=== PATIENT | female | born 1980 | race Caucasian/White ===

== ENCOUNTER 2016-12-16 22:28 | Emergency (ER) | payer BC ==
[~2016-12-16] VITALS: Ht 162.5 cm; Wt 74.8 kg
[~2016-12-16 22:28] MED LIST: ALBUTEROL0.09 MG/A2 IH; CYCLOBENZAPRINE5 M3 PO; HYDROCODONE BIT1 T11 PO; NORCO 10-325 T1 EACH PO; PERCOCET 325 MG1 TA7 PO; PHENERGAN25 MG RC; PREDNISONE10 MG PO; PREDNISONE50 MG PO; VENTOLIN0.09 MG/AC IH; VIBRAMYCIN100 MG PO; ZOFRAN ODT4 MG SL
[2016-12-16 23:00] VITALS: BP 176/134
[2016-12-17 00:11] LABS: BASO # 0.1 10*3/uL (0.0-0.1); BASO % 0.9 % (0.0-1.0); EOS % 0.2 % (1.0-4.0); HEMATOCRIT 43.1 % (37.0-47.0); HEMOGLOBIN 14.8 g/dl (12.0-16.0); LYMPH # 0.8 10*3/uL (1.3-4.4); LYMPH % 11.7 % (27.0-41.0); MEAN CELL VOLUME 87.8 fl (81.0-99.0); MEAN CORPUSCULAR HGB 30.1 pg (27.0-31.0); MEAN CORPUSCULAR HGB CONC 34.3 g/dl (33.0-37.0); MEAN PLATELET VOLUME 10.7 fl (9.6-12.3); MONO # 0.2 10*3/uL (0.1-1.0); MONO % 3.2 % (3.0-9.0); NEUT # 5.5 10*3/uL (2.3-7.9); NEUT % 83.7 % (47.0-73.0); PLATELET COUNT AUTOMATED 231 10*3/uL (130-400); RED BLOOD COUNT 4.91 10*6/uL (4.10-5.10); RED CELL DISTRI WIDTH 12.2 % (0-14.5); WHITE BLOOD COUNT 6.6 10*3/uL (4.8-10.8)
[2016-12-17 00:27] LABS: ALBUMIN 3.4 gm/dl (3.1-4.5); ALKALINE PHOSPHATASE 60 U/L (45-117); BILIRUBIN, TOTAL 0.6 mg/dl (0.2-1.0); BUN 15 mg/dl (7-24); CARBON DIOXIDE 27 mmol/L (21-32); CHLORIDE 105 mmol/L (98-107); EST GLOM FILT AFRICAN AMERICAN > 60 ml/min; GLUCOSE 109 mg/dL (65-99); POTASSIUM 3.8 mmol/L (3.5-5.1); SGOT/AST 16 IU/L (3-35); SGPT/ALT 20 U/L (12-78); SODIUM 138 mmol/L (136-145); TOTAL PROTEIN 6.7 gm/dL (6.4-8.2)
[2016-12-17] MEDS ORDERED: ZOFRAN ODT4 MG SL (00:59)
[2016-12-17 01:08] LABS: BILIRUBIN NEGATIVE (NEGATIVE); BLOOD 1+ (NEGATIVE); CLARITY SL CLOUDY (CLEAR); COLOR YELLOW (YELLOW); GLUCOSE NEGATIVE (NEGATIVE); KETONE 1+ (NEGATIVE); LEUKO ESTERASE NEGATIVE (NEGATIVE); NITRITE NEGATIVE (NEGATIVE); PH 6.5 (5.0-9.0); PROTEIN 3+ (NEGATIVE); SPECIFIC GRAVITY 1.025 (1.005-1.030); UROBILINOGEN 0.2 E.U./dl (0.2-1.0)
[2016-12-17 01:13] LABS: EPITHELIAL CELLS TNTC
[2016-12-17 01:14] LABS: URINE REFLEX COMMENT YES (NO)
[2016-12-17 01:15] LABS: BACTERIA TRACE
== END 2016-12-17 01:41 | disposition home or self-care (01) ==
LOC: ED 22:28
PROVIDERS: Nurse Practitioner Family
DX: K29.00 Acute gastritis without bleeding (principal); Z90.710 Acquired absence of both cervix and uterus; Z98.890 Other specified postprocedural states; Z88.2 Allergy status to sulfonamides; Z88.6 Allergy status to analgesic agent; Z88.5 Allergy status to narcotic agent

== ENCOUNTER 2017-03-14 15:55 | Inpatient (IN) | payer BC ==
[~2017-03-14] VITALS: Ht 162.6 cm; Wt 73.7 kg
--- NOTE | ~2017-03-14 | CON ---
[place], [place] REPORT OF CONSULTATION NAME: ROSE MARIE MCKAY [facility] #: [id number] UNIT #: [id number] ROOM: [facility] DOCTOR: SHAD MENDEZ DO BIRTHDATE: [birth year] DOS: 03/15/2017 REASON FOR CONSULTATION: Resistant new onset hypertension. HISTORY OF PRESENT ILLNESS: The patient is a 36-year-old female that presented to the Emergency Department with nausea that has been present off and on since November and headache that has been off and on for roughly a week. The patient states that she had been trying Excedrin for her headache, but it was not providing any relief. She states that she has had a history of migraines, but that she has not had 1 since 2009. She states that yesterday she was flying into [place] from [place] from [place] whereupon while on the plane, she started feeling like she was going to pass out. After the plane landed, she was escorted immediately to [facility] in [place] and was found out to have hypertensive emergency there, but after being in the ER, she convinced them that she wanted to be discharged to home and would follow up with her PCP. The next day, she went to her PCP, Dr. Ndiaye's office on 03/14/2017, and he recommended that she go to the ER for further evaluation and treatment. Currently, she is complaining of a headache and nausea and vomiting. She states that she does not have any photophobia or phonophobia with the headache. She describes it as a throbbing that is moderate to severe in intensity. She states that she does not take any medications for her blood pressure. PAST MEDICAL HISTORY: 1. H1N1 flu. 2. Acute respiratory distress syndrome. 3. Migraines. 4. Von Willebrand disease. PAST SURGICAL HISTORY: 1. Cleft palate and lip repair. 2. Hysterectomy. SOCIAL HISTORY: The patient admits to occasional alcohol use and denies any illicit drugs or tobacco. FAMILY HISTORY: The patient's father is alive at the age of 71 with a history of hypertension and diabetes and the patient's mother is alive and has a history of hypertension and is 60 years old. ALLERGIES: 1. SULFA, which causes GI upset. 2. ASPIRIN, states she is not supposed to take any blood thinners due to her von Willebrand disease. 3. PROCHLORPERAZINE, which causes the patient to become extremely agitated. REVIEW OF SYSTEMS: GENERAL: The patient denies any fevers or chills. Denies any recent weight loss or weight gain. HEENT: The patient denies any vision changes or hearing loss. Denies any nasal or ear drainage. [place], [place] REPORT OF CONSULTATION NAME: ROSE MARIE MCKAY UNIT #: [id number] ROOM: [facility] DOCTOR: SHAD MENDEZ DO BIRTHDATE: [birth year] CARDIOVASCULAR: The patient denies any chest pain, palpitations or lower extremity edema. RESPIRATORY: The patient denies any shortness of breath, cough, or wheezing. ABDOMEN: The patient does admit to nausea and vomiting, but denies any constipation or diarrhea. GENITOURINARY: The patient denies any dysuria, hematuria or increase in frequency. NEUROLOGIC: The patient does admit to a headache at this time. Denies any dizziness or confusion. PSYCHIATRIC: The patient denies any depression or anxiety. ENDOCRINE: The patient denies any polydipsia, heat intolerance, or cold intolerance. SKIN: The patient denies any new rashes, ulcerations or lesions. PHYSICAL EXAMINATION: VITAL SIGNS: Temperature 98.5, pulse 118, respiratory rate 16, blood pressure 187/126, pulse ox 97% on room air. GENERAL: The patient is awake, alert, responsive and cooperative, but does appear to be in moderate distress. HEENT: Head is normocephalic and atraumatic. Eyes: PERRL. SKIN: No lesions, ulcerations or injections are noted. ENT: No lesions, scars or masses are noted. Nares are patent. Oral mucosa is moist. Uvula is not deviated. No pharyngeal exudates or erythema are noted. NECK: Without any lesions, masses or ulcerations. Trachea midline. Thyroid is not enlarged. HEART: Rate is tachycardic. Rhythm is regular. No murmurs or gallops are noted. No edema is noted in the bilateral lower extremities. LUNGS: Clear to auscultation bilaterally. No wheezes, rhonchi or rales are appreciated. ABDOMEN: Soft, nontender, nondistended, positive bowel sounds are heard throughout. EXTREMITIES: There is no erythema, edema, cyanosis or clubbing appreciated. NEUROLOGIC: Cranial nerves 2-12 are grossly intact. Sensation is grossly intact. No photophobia or phonophobia is noted on examination. PSYCHOLOGICAL: The patient is a good historian with fair judgment and insight. The patient does appear to be anxious at this time. SKIN: Warm and dry with no rashes, ulcerations or lesions. No induration, nodules or tightening are noted. LABORATORY DATA: White blood cell count of 9.6, hemoglobin of 14.5, hematocrit of 41.3, platelet count of 227. Sodium of 141, potassium of 3.1, chloride of 104, carbon dioxide of 23, BUN of 17, creatinine of 0.92, glucose 124, calcium of 8.3. AST of 35, ALT of 66, albumin of 3.6. TSH of 1.27, free T4 of 1.39. A urinalysis was performed which showed 3+ protein in her urine as well as 3+ ketones. Trace blood is noted in the urine as well and as well as 1+ bilirubin. Urine glucose is negative. IMAGIN. A head CT was performed, which showed no acute intracranial abnormality. 2. Chest x-ray was performed, which showed low lung volumes with mild bibasilar subsegmental atelectasis. 3. Echocardiogram was performed which showed left ventricle with normal size, [place], [place] REPORT OF CONSULTATION NAME: ROSE MARIE MCKAY UNIT #: [id number] ROOM: [facility] DOCTOR: SHAD MENDEZ DO BIRTHDATE: [birth year] normal left ventricular wall thickness, normal left ventricular function with an EF of roughly 70%, stage 1 diastolic dysfunction. Interatrial septum is intact with no evidence for atrial septal defect. A trace mitral regurg, trace tricuspid regurg, no pericardial effusion and no intracardiac mass. ASSESSMENT AND PLAN: 1. Hypertensive emergency. The patient was recently started on hydrochlorothiazide as well as Norvasc. Since being admitted to the hospital, the patient does have hydralazine available q. 8 IV p.r.n. hypertension. This should be continued as needed. 2. Headache. 3. Nausea. 4. Tachycardia. 5. Von Willebrand disease. 6. As mentioned above, the patient should be continued on the IV hydralazine p.r.n. If needed, further medications could be added. The patient's headache should be treated via the primary service. At this time, we will try to lower her blood pressure over the next day or so and she will continue to be followed as an outpatient. SHAD MENDEZ DO YANETH WOODARD DO CM:CONSTR:REPORT OF CONSULTATION 1742 03/15/17 1916 interface
[~2017-03-14 15:55] MED LIST changes: -AMLODIPINE BESYL5 MG PO; -ATARAX,VISTARIL50 MG PO; -HYDR25T PO; -PHENERGAN25 M3 PO
[2017-03-14 16:17] VITALS: BP 202/130
[2017-03-14 16:45] VITALS: BP 195/138
[2017-03-14 16:59] LABS: BASO % 0.8 % (0.0-1.0); EOS % 0.6 % (1.0-4.0); HEMATOCRIT 42.7 % (37.0-47.0); LYMPH # 1.3 10*3/uL (1.3-4.4); LYMPH % 24.5 % (27.0-41.0); MEAN CELL VOLUME 85.1 fl (81.0-99.0); MEAN CORPUSCULAR HGB 29.9 pg (27.0-31.0); MEAN CORPUSCULAR HGB CONC 35.1 g/dl (33.0-37.0); MEAN PLATELET VOLUME 10.4 fl (9.6-12.3); MONO # 0.2 10*3/uL (0.1-1.0); MONO % 4.5 % (3.0-9.0); NEUT # 3.6 10*3/uL (2.3-7.9); NEUT % 69.4 % (47.0-73.0); PLATELET COUNT AUTOMATED 249 10*3/uL (130-400); RED BLOOD COUNT 5.02 10*6/uL (4.10-5.10); RED CELL DISTRI WIDTH 12.5 % (0-14.5); WHITE BLOOD COUNT 5.1 10*3/uL (4.8-10.8)
[2017-03-14 17:07] LABS: PROTHROMBIN TIME 10.8 SECONDS (9.0-12.4)
[2017-03-14 17:15] LABS: ALBUMIN 3.7 gm/dl (3.1-4.5); ALKALINE PHOSPHATASE 84 U/L (45-117); BILIRUBIN, TOTAL 0.5 mg/dl (0.2-1.0); BUN 14 mg/dl (7-24); CARBON DIOXIDE 25 mmol/L (21-32); CHLORIDE 106 mmol/L (98-107); CPK 49 U/L (26-192); EST GLOM FILT AFRICAN AMERICAN > 60 ml/min; GLUCOSE 84 mg/dL (65-99); LDH 181 U/L (84-246); MAGNESIUM 1.6 mg/dL (1.5-2.1); POTASSIUM 3.6 mmol/L (3.5-5.1); SGOT/AST 46 IU/L (3-35); SGPT/ALT 77 U/L (12-78); SODIUM 141 mmol/L (136-145); TOTAL PROTEIN 7.1 gm/dL (6.4-8.2)
[2017-03-14 17:18] LABS: CKMB < 0.5 ng/ml (0.5-3.6)
[2017-03-14 17:19] LABS: TROPONIN I < 0.015 ng/ml (<0.045)
[2017-03-14 18:45] VITALS: BP 173/115
[2017-03-14 19:38] VITALS: BP 169/117
[2017-03-14 20:00] VITALS: BP 169/117
[2017-03-14 22:39] VITALS: BP 136/95
[2017-03-15] VITALS (11 sets, daily range): BP systolic 117–187; BP diastolic 71–126
[2017-03-15 04:22] LABS: BASO % 0.4 % (0.0-1.0); EOS % 0.1 % (1.0-4.0); HEMATOCRIT 41.3 % (37.0-47.0); HEMOGLOBIN 14.5 g/dl (12.0-16.0); LYMPH # 0.9 10*3/uL (1.3-4.4); LYMPH % 8.8 % (27.0-41.0); MEAN CELL VOLUME 85.2 fl (81.0-99.0); MEAN CORPUSCULAR HGB 29.9 pg (27.0-31.0); MEAN CORPUSCULAR HGB CONC 35.1 g/dl (33.0-37.0); MEAN PLATELET VOLUME 10.3 fl (9.6-12.3); MONO # 0.2 10*3/uL (0.1-1.0); MONO % 2.5 % (3.0-9.0); NEUT # 8.4 10*3/uL (2.3-7.9); NEUT % 87.8 % (47.0-73.0); PLATELET COUNT AUTOMATED 227 10*3/uL (130-400); RED BLOOD COUNT 4.85 10*6/uL (4.10-5.10); RED CELL DISTRI WIDTH 12.4 % (0-14.5); WHITE BLOOD COUNT 9.6 10*3/uL (4.8-10.8)
[2017-03-15 04:38] LABS: ALBUMIN 3.6 gm/dl (3.1-4.5); ALKALINE PHOSPHATASE 77 U/L (45-117); BILIRUBIN, TOTAL 0.5 mg/dl (0.2-1.0); BUN 17 mg/dl (7-24); CARBON DIOXIDE 23 mmol/L (21-32); CHLORIDE 104 mmol/L (98-107); EST GLOM FILT AFRICAN AMERICAN > 60 ml/min; GLUCOSE 124 mg/dL (65-99); POTASSIUM 3.1 mmol/L (3.5-5.1); SGOT/AST 35 IU/L (3-35); SGPT/ALT 66 U/L (12-78); SODIUM 141 mmol/L (136-145)
[2017-03-15 04:40] LABS: FREE T4 1.39 ng/dl (0.76-1.46)
[2017-03-15 07:08] LABS: FOLIC ACID 15.23 ng/mL (>5.38)
[2017-03-15 12:03] LABS: BILIRUBIN 1+ (NEGATIVE); BLOOD TRACE-INTACT (NEGATIVE); CLARITY CLEAR (CLEAR); COLOR YELLOW (YELLOW); GLUCOSE NEGATIVE (NEGATIVE); KETONE 3+ (NEGATIVE); LEUKO ESTERASE NEGATIVE (NEGATIVE); NITRITE NEGATIVE (NEGATIVE); PROTEIN 3+ (NEGATIVE); SPECIFIC GRAVITY >= 1.030 (1.005-1.030); UROBILINOGEN 0.2 E.U./dl (0.2-1.0)
[2017-03-15 12:15] LABS: BACTERIA TRACE
[2017-03-15 12:17] LABS: URINE REFLEX COMMENT YES (NO)
[2017-03-16 04:00] VITALS: BP 152/107
[2017-03-16 06:20] VITALS: BP 144/94
[2017-03-16 07:28] LABS: CHLORIDE 99 mmol/L (98-107); POTASSIUM 3.2 mmol/L (3.5-5.1); SODIUM 136 mmol/L (136-145)
[2017-03-16 07:34] LABS: BUN 16 mg/dl (7-24); CARBON DIOXIDE 23 mmol/L (21-32); EST GLOM FILT AFRICAN AMERICAN > 60 ml/min; GLUCOSE 99 mg/dL (65-99); PHOSPHOROUS 3.4 mg/dL (2.5-4.9)
[2017-03-16 08:00] VITALS: BP 140/98
[2017-03-16] MEDS ORDERED: AMLODIPINE BESYL5 MG PO (11:05)
[2017-03-16] MEDS ORDERED: HYDR25T PO (11:05)
[2017-03-16] MEDS ORDERED: PHENERGAN25 M3 PO (11:24)
[2017-03-16] MEDS ORDERED: ATARAX,VISTARIL50 MG PO (11:31)
[2017-03-16 17:07] LABS: CREATININE, RANDOM URINE 130.8 mg/dL (Not Estab.)
[2017-03-17 19:06] LABS: METANEPH-CREAT RATIO 0.5 (0.0-1.0)
== END 2017-03-16 12:00 | disposition home or self-care (01) | DRG 304 ==
LOC: ED 15:55 → EDHOLD 17:40 → ICCU 17:49 → 5E 03-16 05:52
PROVIDERS: Hospitalist; Internal Medicine Hospice and Palliative Medicine; Physician Assistant
DX: I16.1 Hypertensive emergency (principal); I50.31 Acute diastolic (congestive) heart failure; I11.0 Hypertensive heart disease with heart failure; R00.0 Tachycardia, unspecified; G43.909 Migraine, unspecified, not intractable, without status migrainosus; I08.1 Rheumatic disorders of both mitral and tricuspid valves; Z83.3 Family history of diabetes mellitus; Z88.2 Allergy status to sulfonamides; Z88.6 Allergy status to analgesic agent; Z90.710 Acquired absence of both cervix and uterus; Z88.8 Allergy status to other drugs, medicaments and biological substances; Z82.49 Family history of ischemic heart disease and other diseases of the circulatory system

== ENCOUNTER → 2017-03-14 | Outpatient (CLI) | payer BC ==
[~2017-03-14] MED LIST changes: +AMLODIPINE BESYL5 MG PO; +ATARAX,VISTARIL50 MG PO; +HYDR25T PO; +PHENERGAN25 M3 PO
[2017-03-14 10:06] LABS: HEMATOCRIT 44.3 % (37.0-47.0); HEMOGLOBIN 15.5 g/dl (12.0-16.0); MEAN CORPUSCULAR HGB 30.1 pg (27.0-31.0); MEAN PLATELET VOLUME 10.9 fl (9.6-12.3); RED BLOOD COUNT 5.15 10*6/uL (4.10-5.10); RED CELL DISTRI WIDTH 12.3 % (0-14.5); WHITE BLOOD COUNT 4.4 10*3/uL (4.8-10.8)
[2017-03-14 10:42] LABS: ALBUMIN 3.9 gm/dl (3.1-4.5); CHLORIDE 103 mmol/L (98-107); EST GLOM FILT AFRICAN AMERICAN > 60 ml/min; HDL CHOLESTEROL 73 mg/dl (40-60); POTASSIUM 3.2 mmol/L (3.5-5.1); SGOT/AST 45 IU/L (3-35); SGPT/ALT 81 U/L (12-78); SODIUM 140 mmol/L (136-145)
[2017-03-14 10:51] LABS: ALKALINE PHOSPHATASE 90 U/L (45-117); BILIRUBIN, TOTAL 0.5 mg/dl (0.2-1.0); BUN 13 mg/dl (7-24); CARBON DIOXIDE 25 mmol/L (21-32); CHOLESTEROL 193 mg/dL (<200); GLUCOSE 86 mg/dL (65-99); IRON 83 ug/dL (50-170); IRON SATURATION 26 %; LDL CHOLESTEROL 100 mg/dL (9-159); TOTAL PROTEIN 7.4 gm/dL (6.4-8.2); TRIGLYCERIDES 101 mg/dl (<150); UIBC 229 ug/dL (110-365); VLDL CHOLESTEROL 20 mg/dL (6-40)
== END | disposition home or self-care (01) ==
LOC: LAB 09:22
PROVIDERS: Family Medicine
DX: Z13.220 Encounter for screening for lipoid disorders (principal); D64.9 Anemia, unspecified; E74.00 Glycogen storage disease, unspecified; F41.1 Generalized anxiety disorder; R53.83 Other fatigue

== ENCOUNTER → 2018-09-01 | Outpatient (CLI) | payer BC ==
[~2018-09-01] MED LIST changes: +AMLODIPINE BESYL5 MG PO; +ATARAX,VISTARIL50 MG PO; +HYDR25T PO; +PHENERGAN25 M3 PO
== END ==
LOC: MAMMO 08:31
DX: Z12.31 Encounter for screening mammogram for malignant neoplasm of breast (principal)

== ENCOUNTER → 2019-02-05 | Outpatient (CLI) | payer BC ==
[~2019-02-05] MED LIST changes: +DELTASONE20 M1 PO; +METOPROLOL SUCC50 M1 PO; +NEBULIZER; +VENTOLIN 02.5 MG/3 M INH
--- NOTE | ~2019-02-05 | EKG ---
[place], [place] ELECTROCARDIOGRAM REPORT NAME: ROSE MARIE MCKAY UNIT #: [id number] ROOM: DOCTOR: EPIPHANY DRAFT REPORT BIRTHDATE: [birth year] [facility] Test Date: 2019-02-05 Test Time: 16:16:42 Pat Name: ROSE MARIE MCKAY Department: Room: Gender: F Director Marketing: Mariella Gonzalez : 1980 Requested By: RONALDO ACEVES Order Number: [id number] Reading MD: Miky Schafer MD Measurements Intervals Zahl Rate: 79 P: 70 AL: 155 QRS: 72 QRSD: 82 T: 17 QT: 357 QTc: 410 Interpretive Statements Sinus rhythm No previous ECG available for comparison Electronically Signed On 02-06-2019 4:09:46 PDT by Miky Schafer MD CM:EKGRPT:ELECTROCARDIOGRAM REPORT [id number] RONALDO ACEVES EPIPHANY DRAFT REPORT RONALDO ACEVES
== END | disposition home or self-care (01) ==
LOC: RAD 15:46
DX: I11.0 Hypertensive heart disease with heart failure (principal); I50.32 Chronic diastolic (congestive) heart failure; E55.9 Vitamin D deficiency, unspecified; F41.1 Generalized anxiety disorder; J18.1 Lobar pneumonia, unspecified organism; R05 Cough

== ENCOUNTER → 2019-12-24 | Outpatient (CLI) | payer BC | END | disposition home or self-care (01) | LOC: MAMMO 13:00 | DX: Z12.31 Encounter for screening mammogram for malignant neoplasm of breast (principal) ==

== ENCOUNTER 2020-12-24 17:11 | Emergency (ER) | payer BC ==
[~2020-12-24] VITALS: Ht 162.5 cm; Wt 79.4 kg
[2020-12-24 17:17] VITALS: BP 126/99
[2020-12-24] MEDS ORDERED: ANTIBIOTIC28.4 GM T (17:40)
[2020-12-24] MEDS ORDERED: HYDROCODONE-AC1 EAC1 PO (17:40)
[2021-01-19] MEDS ORDERED: PROAIR HFA8.5 GM INH (09:18)
[2021-01-22] MEDS ORDERED: PERCOCET 5-3251 EACH PO (07:56)
== END 2020-12-24 21:30 | disposition home or self-care (01) ==
LOC: ED 17:11
DX: T23.231A Burn of second degree of multiple right fingers (nail), not including thumb, initial encounter (principal); T23.232A Burn of second degree of multiple left fingers (nail), not including thumb, initial encounter; Z98.890 Other specified postprocedural states; Z79.899 Other long term (current) drug therapy; Z88.2 Allergy status to sulfonamides; Z88.6 Allergy status to analgesic agent; Z88.8 Allergy status to other drugs, medicaments and biological substances; X16.XXXA Contact with hot heating appliances, radiators and pipes, initial encounter; Y93.89 Activity, other specified; Y92.89 Other specified places as the place of occurrence of the external cause; Y99.9 Unspecified external cause status

== ENCOUNTER → 2020-12-30 | Outpatient (CLI) | payer BC ==
[~2020-12-30] MED LIST changes: +ANTIBIOTIC28.4 GM T; +HYDROCODONE-AC1 EAC1 PO; +PERCOCET 5-3251 EACH PO; +PROAIR HFA8.5 GM INH
== END ==
LOC: WOUNDCARE 01:30
PROVIDERS: ATTEND Surgery
DX: T23.351A Burn of third degree of right palm, initial encounter (principal); T31.0 Burns involving less than 10% of body surface; T23.202A Burn of second degree of left hand, unspecified site, initial encounter; T23.232A Burn of second degree of multiple left fingers (nail), not including thumb, initial encounter; I12.9 Hypertensive chronic kidney disease with stage 1 through stage 4 chronic kidney disease, or unspecified chronic kidney disease; N18.9 Chronic kidney disease, unspecified; D68.0 Von Willebrand disease; J98.4 Other disorders of lung; Z90.710 Acquired absence of both cervix and uterus; Z79.899 Other long term (current) drug therapy; X08.8XXA Exposure to other specified smoke, fire and flames, initial encounter; Y93.89 Activity, other specified; Y92.89 Other specified places as the place of occurrence of the external cause; Y99.8 Other external cause status

== ENCOUNTER → 2021-01-06 | Outpatient (CLI) | payer BC | LOC: WOUNDCARE 02:06 | PROVIDERS: ATTEND Nurse Practitioner | DX: T23.232D Burn of second degree of multiple left fingers (nail), not including thumb, subsequent encounter (principal); T23.202D Burn of second degree of left hand, unspecified site, subsequent encounter; T31.0 Burns involving less than 10% of body surface; I12.9 Hypertensive chronic kidney disease with stage 1 through stage 4 chronic kidney disease, or unspecified chronic kidney disease; N18.9 Chronic kidney disease, unspecified; D68.0 Von Willebrand disease; J98.4 Other disorders of lung; Z90.710 Acquired absence of both cervix and uterus; Z79.899 Other long term (current) drug therapy; X08.8XXD Exposure to other specified smoke, fire and flames, subsequent encounter ==

== ENCOUNTER → 2021-01-19 | Outpatient (CLI) | payer BC | END | disposition home or self-care (01) | LOC: COVID19 11:33 | PROVIDERS: ATTEND Surgery | DX: Z01.812 Encounter for preprocedural laboratory examination (principal); Z20.822 Contact with and (suspected) exposure to COVID-19 ==

== ENCOUNTER → 2021-01-22 | Day surgery (SDC) | payer BC ==
[~2021-01-22] VITALS: Ht 162.5 cm; Wt 80.7 kg
[2021-01-22 07:02] VITALS: BP 108/72
[2021-01-22 07:59] VITALS: BP 113/52
[2021-01-22 08:15] VITALS: BP 103/75
[2021-01-22 08:30] VITALS: BP 99/54
[2021-01-22 09:55] VITALS: BP 113/62
== END ==
LOC: SDC 10-30 08:00
PROVIDERS: ATTEND Surgery
DX: L72.11 Pilar cyst (principal); D23.4 Other benign neoplasm of skin of scalp and neck; I13.0 Hypertensive heart and chronic kidney disease with heart failure and stage 1 through stage 4 chronic kidney disease, or unspecified chronic kidney disease; N18.30 Chronic kidney disease, stage 3 unspecified; I50.9 Heart failure, unspecified; G43.909 Migraine, unspecified, not intractable, without status migrainosus; Z88.2 Allergy status to sulfonamides; Z88.6 Allergy status to analgesic agent; Z88.8 Allergy status to other drugs, medicaments and biological substances; Z90.710 Acquired absence of both cervix and uterus; Z79.899 Other long term (current) drug therapy

== ENCOUNTER → 2021-10-15 | Outpatient (CLI) | payer BC ==
[2021-10-15 08:41] LABS: BASO # 0.1 10*3/uL (0.0-0.1); BASO % 1.3 % (0.0-1.0); EOS # 0.2 10*3/uL (0.0-0.4); EOS % 2.8 % (1.0-4.0); HEMATOCRIT 41.9 % (37.0-47.0); LYMPH # 1.2 10*3/uL (1.3-4.4); MEAN CELL VOLUME 89.9 fl (81.0-99.0); MEAN CORPUSCULAR HGB 29.8 pg (27.0-31.0); MEAN CORPUSCULAR HGB CONC 33.2 g/dl (33.0-37.0); MEAN PLATELET VOLUME 10.3 fl (9.6-12.3); MONO # 0.4 10*3/uL (0.1-1.0); MONO % 6.5 % (3.0-9.0); NEUT # 4.1 10*3/uL (2.3-7.9); NEUT % 69.1 % (47.0-73.0); PLATELET COUNT AUTOMATED 241 10*3/uL (130-400); RED BLOOD COUNT 4.66 10*6/uL (4.10-5.10); RED CELL DISTRI WIDTH 12.6 % (0-14.5)
[2021-10-15 08:55] LABS: ALBUMIN 3.5 gm/dl (3.1-4.5); ALKALINE PHOSPHATASE 60 U/L (45-117); BUN 14 mg/dl (7-24); CHLORIDE 106 mmol/L (98-107); CHOLESTEROL 180 mg/dL (<200); LDL CHOLESTEROL 90 mg/dL (9-159); SGOT/AST 20 IU/L (3-35); SGPT/ALT 33 U/L (12-78); SODIUM 138 mmol/L (136-145); TRIGLYCERIDES 86 mg/dl (<150)
== END | disposition home or self-care (01) ==
LOC: LAB 07:23 → MAMMO 07:30
PROVIDERS: ATTEND Nurse Practitioner Family
DX: Z12.31 Encounter for screening mammogram for malignant neoplasm of breast (principal); I10 Essential (primary) hypertension; F41.1 Generalized anxiety disorder

== ENCOUNTER → 2022-03-02 | Outpatient (CLI) | payer BC ==
[2022-03-02 08:48] LABS: BASO # 0.1 10*3/uL (0.0-0.1); BASO % 1.4 % (0.0-1.0); EOS # 0.1 10*3/uL (0.0-0.4); EOS % 2.6 % (1.0-4.0); HEMATOCRIT 44.3 % (37.0-47.0); LYMPH # 1.8 10*3/uL (1.3-4.4); LYMPH % 35.4 % (27.0-41.0); MEAN CELL VOLUME 88.1 fl (81.0-99.0); MEAN CORPUSCULAR HGB CONC 34.1 g/dl (33.0-37.0); MEAN PLATELET VOLUME 9.9 fl (9.6-12.3); MONO # 0.4 10*3/uL (0.1-1.0); MONO % 7.2 % (3.0-9.0); NEUT # 2.6 10*3/uL (2.3-7.9); NEUT % 53.2 % (47.0-73.0); PLATELET COUNT AUTOMATED 251 10*3/uL (130-400); RED BLOOD COUNT 5.03 10*6/uL (4.10-5.10); RED CELL DISTRI WIDTH 12.8 % (0-14.5)
[2022-03-02 09:06] LABS: CREATININE 1.2 mg/dL (0.55-1.02); POTASSIUM 4.2 mmol/L (3.5-5.1); TOTAL PROTEIN 7.4 gm/dL (6.4-8.2)
[2022-03-02 09:13] LABS: THYROID STIM HORMONE (HS) 2.27 uIU/ml (0.358-4.75)
== END | disposition home or self-care (01) ==
LOC: LAB 08:26
PROVIDERS: ATTEND Nurse Practitioner Family
DX: I10 Essential (primary) hypertension (principal); E55.9 Vitamin D deficiency, unspecified

== ENCOUNTER → 2022-03-25 | Outpatient (CLI) | payer BC | END | disposition home or self-care (01) | LOC: US 08:30 | PROVIDERS: ATTEND Nurse Practitioner Family | DX: R79.89 Other specified abnormal findings of blood chemistry (principal) ==

== ENCOUNTER → 2022-09-01 | Outpatient (CLI) | payer BC ==
[2022-09-01 07:46] LABS: BASO # 0.1 10*3/uL (0.0-0.1); BASO % 1.4 % (0.0-1.0); EOS # 0.2 10*3/uL (0.0-0.4); EOS % 3.9 % (1.0-4.0); HEMATOCRIT 43.6 % (37.0-47.0); LYMPH # 1.9 10*3/uL (1.3-4.4); LYMPH % 32.9 % (27.0-41.0); MEAN CELL VOLUME 87.9 fl (81.0-99.0); MEAN CORPUSCULAR HGB 29.6 pg (27.0-31.0); MEAN CORPUSCULAR HGB CONC 33.7 g/dl (33.0-37.0); MEAN PLATELET VOLUME 9.8 fl (9.6-12.3); MONO # 0.4 10*3/uL (0.1-1.0); MONO % 6.7 % (3.0-9.0); NEUT # 3.2 10*3/uL (2.3-7.9); NEUT % 54.9 % (47.0-73.0); PLATELET COUNT AUTOMATED 242 10*3/uL (130-400); RED BLOOD COUNT 4.96 10*6/uL (4.10-5.10); RED CELL DISTRI WIDTH 12.4 % (0-14.5); WHITE BLOOD COUNT 5.9 10*3/uL (4.8-10.8)
[2022-09-01 08:01] LABS: CREATININE 1.24 mg/dL (0.55-1.02); POTASSIUM 4.4 mmol/L (3.5-5.1); TOTAL PROTEIN 7.2 gm/dL (6.4-8.2)
== END ==
LOC: LAB 07:32
PROVIDERS: ATTEND Nurse Practitioner Family
DX: Z12.31 Encounter for screening mammogram for malignant neoplasm of breast (principal); F41.1 Generalized anxiety disorder

== ENCOUNTER → 2022-09-27 | Outpatient (CLI) | payer BC ==
[2022-09-27 09:02] LABS: BASO # 0.1 10*3/uL (0.0-0.1); BASO % 1.4 % (0.0-1.0); EOS # 0.2 10*3/uL (0.0-0.4); EOS % 3.6 % (1.0-4.0); HEMATOCRIT 43.6 % (37.0-47.0); LYMPH # 1.8 10*3/uL (1.3-4.4); LYMPH % 32.4 % (27.0-41.0); MEAN CELL VOLUME 88.1 fl (81.0-99.0); MEAN CORPUSCULAR HGB 29.7 pg (27.0-31.0); MEAN CORPUSCULAR HGB CONC 33.7 g/dl (33.0-37.0); MEAN PLATELET VOLUME 9.7 fl (9.6-12.3); MONO # 0.4 10*3/uL (0.1-1.0); MONO % 6.7 % (3.0-9.0); NEUT # 3.1 10*3/uL (2.3-7.9); NEUT % 55.7 % (47.0-73.0); PLATELET COUNT AUTOMATED 271 10*3/uL (130-400); RED BLOOD COUNT 4.95 10*6/uL (4.10-5.10); RED CELL DISTRI WIDTH 12.3 % (0-14.5); WHITE BLOOD COUNT 5.6 10*3/uL (4.8-10.8)
[2022-09-27 09:15] LABS: URINE CREATININE RANDOM 45.6 mg/dL
[2022-09-27 09:17] LABS: CREATININE 1.26 mg/dL (0.55-1.02); POTASSIUM 4.3 mmol/L (3.5-5.1); TOTAL PROTEIN 7.4 gm/dL (6.4-8.2); URIC ACID 4.6 mg/dL (2.6-6.0)
== END | disposition home or self-care (01) ==
LOC: LAB 08:34
PROVIDERS: ATTEND Nurse Practitioner Adult Health
DX: I12.9 Hypertensive chronic kidney disease with stage 1 through stage 4 chronic kidney disease, or unspecified chronic kidney disease (principal); N18.31 Chronic kidney disease, stage 3a; E55.9 Vitamin D deficiency, unspecified

== ENCOUNTER → 2023-09-28 | Outpatient (CLI) | payer BC | END | disposition home or self-care (01) | LOC: MAMMO 14:00 | PROVIDERS: ATTEND Nurse Practitioner Family | DX: Z12.31 Encounter for screening mammogram for malignant neoplasm of breast (principal) ==

== ENCOUNTER → 2024-03-26 | Outpatient (CLI) | payer BC | END | disposition home or self-care (01) | LOC: RAD 14:44 | PROVIDERS: ATTEND Nurse Practitioner Family | DX: J20.9 Acute bronchitis, unspecified (principal); R06.02 Shortness of breath; R05.9 Cough, unspecified; J45.909 Unspecified asthma, uncomplicated; J44.9 Chronic obstructive pulmonary disease, unspecified ==

== ENCOUNTER → 2024-03-26 | Outpatient (CLI) | payer BC | LOC: LAB 15:59 | PROVIDERS: ATTEND Nurse Practitioner Family | DX: Z20.822 Contact with and (suspected) exposure to COVID-19 (principal) ==

== ENCOUNTER → 2024-12-24 | Outpatient (CLI) | payer BC | END | disposition home or self-care (01) | LOC: MAMMO 11-12 08:00 | PROVIDERS: ATTEND Nurse Practitioner Primary Care | DX: Z12.31 Encounter for screening mammogram for malignant neoplasm of breast (principal); R92.323 Mammographic fibroglandular density, bilateral breasts ==

== ENCOUNTER 2025-01-07 11:07 | Emergency (ER) | payer BC ==
[~2025-01-07] VITALS: Ht 162.5 cm; Wt 82.6 kg
[2025-01-07 11:31] VITALS: BP 151/97
[2025-01-07] MEDS ORDERED: Albuterol Sulf/Ipratropium 3 ML VIAL NEB ONE (11:35)
[2025-01-07] MEDS ORDERED: methylPREDNISolone sod succ 125 MG VIAL IV ONE (11:35)
[2025-01-07] MEDS ORDERED: ATARAX,VISTARIL50 MG PO (11:47)
[2025-01-07] MEDS ORDERED: BREO ELLIPTA 11 EACH INH (11:48)
[2025-01-07 11:53] LABS: BASO % 0.5 % (0.0-1.0); EOS % 0.3 % (1.0-4.0); HEMATOCRIT 41.6 % (37.0-47.0); MEAN CELL VOLUME 88.3 fl (81.0-99.0); MEAN CORPUSCULAR HGB 29.5 pg (27.0-31.0); MEAN CORPUSCULAR HGB CONC 33.4 g/dl (33.0-37.0); MONO # 0.4 10*3/uL (0.1-1.0); MONO % 5.3 % (3.0-9.0); NEUT # 4.8 10*3/uL (2.3-7.9); NEUT % 72.5 % (47.0-73.0); PLATELET COUNT AUTOMATED 226 10*3/uL (130-400); RED BLOOD COUNT 4.71 10*6/uL (4.10-5.10); RED CELL DISTRI WIDTH 12.2 % (0-14.5); WHITE BLOOD COUNT 6.7 10*3/uL (4.8-10.8)
[2025-01-07 12:16] LABS: ALKALINE PHOSPHATASE 112 U/L (46-116); BUN 12 mg/dl (9-23); CHLORIDE 105 mmol/L (98-107); SGPT/ALT 65 U/L (5-49); TOTAL PROTEIN 7.3 gm/dL (6.0-8.0)
[2025-01-07] MEDS ORDERED: AVPAK AZITHROM250 M1 PO (13:01)
[2025-01-07] MEDS ORDERED: PREDNISONE20 M1 PO (13:01)
[2025-01-07] MEDS ORDERED: ALBUTEROL2.5 MG/0.5 INH (13:05)
[2025-01-07] MEDS ORDERED: AZITHROMYCIN 250 MG TAB PO ONE (13:05)
== END 2025-01-07 13:14 | disposition home or self-care (01) ==
LOC: ED 11:07
PROVIDERS: Nurse Practitioner Family
DX: J40 Bronchitis, not specified as acute or chronic (principal); R11.0 Nausea; Z20.822 Contact with and (suspected) exposure to COVID-19; D64.9 Anemia, unspecified; G43.909 Migraine, unspecified, not intractable, without status migrainosus; E87.6 Hypokalemia; I11.0 Hypertensive heart disease with heart failure; I50.9 Heart failure, unspecified; F41.9 Anxiety disorder, unspecified; Z88.6 Allergy status to analgesic agent; Z88.2 Allergy status to sulfonamides; Z88.8 Allergy status to other drugs, medicaments and biological substances; Z90.711 Acquired absence of uterus with remaining cervical stump; Z98.890 Other specified postprocedural states

== ENCOUNTER 2025-01-31 06:53 | Emergency (ER) | payer BC ==
[~2025-01-31] VITALS: Ht 170.1 cm; Wt 82.6 kg
[~2025-01-31 06:53] MED LIST changes: +ALBUTEROL2.5 MG/0.5 INH; +AVPAK AZITHROM250 M1 PO; +BREO ELLIPTA 11 EACH INH; +PREDNISONE20 M1 PO
[2025-01-31 07:30] VITALS: BP 132/94
[2025-01-31] MEDS ORDERED: Ondansetron Hydrochloride 4 MG TAB SL ONE (07:30)
[2025-01-31 07:55] LABS: BASO % 0.3 % (0.0-1.0); EOS # 0.1 10*3/uL (0.0-0.4); EOS % 2.2 % (1.0-4.0); HEMATOCRIT 42.6 % (37.0-47.0); MEAN CELL VOLUME 91.2 fl (81.0-99.0); MEAN CORPUSCULAR HGB 29.6 pg (27.0-31.0); MEAN CORPUSCULAR HGB CONC 32.4 g/dl (33.0-37.0); MEAN PLATELET VOLUME 8.9 fl (9.6-12.3); MONO # 0.5 10*3/uL (0.1-1.0); MONO % 7.9 % (3.0-9.0); NEUT % 61.9 % (47.0-73.0); PLATELET COUNT AUTOMATED 235 10*3/uL (130-400); RED BLOOD COUNT 4.67 10*6/uL (4.10-5.10); RED CELL DISTRI WIDTH 13.2 % (0-14.5); WHITE BLOOD COUNT 6.5 10*3/uL (4.8-10.8)
[2025-01-31 08:15] LABS: POTASSIUM 4.3 mmol/L (3.4-5.1)
[2025-01-31] MEDS ORDERED: Ondansetron4 MG PO (08:55)
== END 2025-01-31 09:01 | disposition home or self-care (01) ==
LOC: ED 06:53
PROVIDERS: Internal Medicine
DX: K52.9 Noninfective gastroenteritis and colitis, unspecified (principal); F17.200 Nicotine dependence, unspecified, uncomplicated; R11.2 Nausea with vomiting, unspecified; Z88.2 Allergy status to sulfonamides; Z88.6 Allergy status to analgesic agent; Z88.8 Allergy status to other drugs, medicaments and biological substances; Z79.899 Other long term (current) drug therapy; Z98.890 Other specified postprocedural states; Z90.710 Acquired absence of both cervix and uterus

== ENCOUNTER 2025-02-01 11:50 | Emergency (ER) | payer BC ==
[~2025-02-01] VITALS: Ht 162.5 cm; Wt 81.6 kg
[~2025-02-01 11:50] MED LIST changes: +Ondansetron4 MG PO
[2025-02-01 12:08] VITALS: BP 103/60
[2025-02-01] MEDS ORDERED: Ketorolac Tromethamine 15 MG/ML VIAL IV ONE (12:15)
[2025-02-01] MEDS ORDERED: diphenhydrAMINE hydrochloride 50 MG/ML VIAL IV ONE (12:15)
[2025-02-01] MEDS ORDERED: Metoclopramide Hydrochloride 10 MG/2 ML VIAL IV ONE (12:15)
[2025-02-01] MEDS ORDERED: SODIUM CHLORIDE 0.9% 1,000 ML IV ONE (12:15)
[2025-02-01] MEDS ORDERED: methylPREDNISolone sod succ 125 MG VIAL IV ONE (12:20)
[2025-02-01] MEDS ORDERED: MAGNESIUM SULFATE 50 ML IV ONE (12:20)
[2025-02-01 12:41] LABS: BASO % 0.3 % (0.0-1.0); EOS # 0.1 10*3/uL (0.0-0.4); EOS % 0.9 % (1.0-4.0); HEMATOCRIT 45.7 % (37.0-47.0); MEAN CORPUSCULAR HGB 29.5 pg (27.0-31.0); MEAN CORPUSCULAR HGB CONC 32.4 g/dl (33.0-37.0); MEAN PLATELET VOLUME 8.9 fl (9.6-12.3); MONO # 0.4 10*3/uL (0.1-1.0); MONO % 6.5 % (3.0-9.0); NEUT # 4.9 10*3/uL (2.3-7.9); NEUT % 72.9 % (47.0-73.0); PLATELET COUNT AUTOMATED 243 10*3/uL (130-400); RED BLOOD COUNT 5.02 10*6/uL (4.10-5.10); WHITE BLOOD COUNT 6.8 10*3/uL (4.8-10.8)
[2025-02-01 13:00] LABS: POTASSIUM 4.3 mmol/L (3.4-5.1)
[2025-02-01] MEDS ORDERED: HYDROmorphone Hydrochloride 1 MG/ML SYR IV ONE (13:00)
== END 2025-02-01 13:41 | disposition home or self-care (01) ==
LOC: ED 11:50
PROVIDERS: Emergency Medicine
DX: J44.1 Chronic obstructive pulmonary disease with (acute) exacerbation (principal); R51.9 Headache, unspecified; R11.2 Nausea with vomiting, unspecified; I10 Essential (primary) hypertension; E78.5 Hyperlipidemia, unspecified; Z88.2 Allergy status to sulfonamides; Z88.6 Allergy status to analgesic agent; Z88.8 Allergy status to other drugs, medicaments and biological substances; Z79.899 Other long term (current) drug therapy; Z98.890 Other specified postprocedural states; Z90.711 Acquired absence of uterus with remaining cervical stump

== ENCOUNTER → 2025-04-03 | Outpatient (CLI) | payer BC | END | disposition home or self-care (01) | LOC: CT 12:58 | PROVIDERS: ATTEND Nurse Practitioner Primary Care | DX: N60.01 Solitary cyst of right breast (principal); R92.8 Other abnormal and inconclusive findings on diagnostic imaging of breast ==

== ENCOUNTER 2025-07-10 01:54 | Emergency (ER) | payer BC ==
[2025-07-10] MEDS ORDERED: Ondansetron Hydrochloride 4 MG/2 ML VIAL IV ONE (02:15)
[2025-07-10] MEDS ORDERED: diazePAM 10 MG/2 ML SYR IV ONE (02:15)
[2025-07-10 02:48] LABS: BASO # 0.0 10*3/uL (0.0-0.1); BASO % 0.1 % (0.0-1.0); EOS # 0.0 10*3/uL (0.0-0.4); EOS % 0.0 % (1.0-4.0); MEAN CELL VOLUME 87.5 fl (81.0-99.0); MEAN CORPUSCULAR HGB 29.5 pg (27.0-31.0); MEAN PLATELET VOLUME 10.1 fl (9.6-12.3); MONO # 0.3 10*3/uL (0.1-1.0); MONO % 3.9 % (3.0-9.0); NEUT # 6.8 10*3/uL (2.3-7.9); NEUT % 84.7 % (47.0-73.0); NUCLEATED RED BLOOD CELL 0.0 % (0.0-0.0); NUCLEATED RED BLOOD CELL 0.0 10*3/uL (0.0-0.0); PLATELET COUNT AUTOMATED 205 10*3/uL (130-400); RED CELL DISTRI WIDTH 12.6 % (0-14.5)
[2025-07-10 03:11] VITALS: BP 128/77
[2025-07-10] MEDS ORDERED: Metoclopramide Hydrochloride 10 MG/2 ML VIAL IV ONE (03:15)
[2025-07-10 03:38] LABS: BUN 16 mg/dl (9-23)
== END 2025-07-10 05:00 | disposition home or self-care (01) ==
LOC: ED 01:54
PROVIDERS: Emergency Medicine
DX: G89.18 Other acute postprocedural pain (principal); F41.9 Anxiety disorder, unspecified; Z53.29 Procedure and treatment not carried out because of patient's decision for other reasons; J44.9 Chronic obstructive pulmonary disease, unspecified; I11.0 Hypertensive heart disease with heart failure; I50.9 Heart failure, unspecified; G43.909 Migraine, unspecified, not intractable, without status migrainosus; Z88.2 Allergy status to sulfonamides; Z88.6 Allergy status to analgesic agent; Z88.8 Allergy status to other drugs, medicaments and biological substances; Z79.899 Other long term (current) drug therapy; Z90.711 Acquired absence of uterus with remaining cervical stump; Z98.890 Other specified postprocedural states

== ENCOUNTER 2025-08-12 15:16 | Emergency (ER) | payer BC ==
[~2025-08-12] VITALS: Ht 162.5 cm; Wt 82.6 kg
[2025-08-12 15:43] VITALS: BP 131/97
[2025-08-12] MEDS ORDERED: SODIUM CHLORIDE 0.9% 1,000 ML IV ONE (16:15)
[2025-08-12] MEDS ORDERED: Ondansetron Hydrochloride 4 MG/2 ML VIAL IV ONE (16:30)
[2025-08-12 16:39] LABS: BASO # 0.1 10*3/uL (0.0-0.1); BASO % 1.1 % (0.0-1.0); EOS # 0.0 10*3/uL (0.0-0.4); EOS % 0.7 % (1.0-4.0); MEAN CELL VOLUME 89.5 fl (81.0-99.0); MEAN CORPUSCULAR HGB 29.5 pg (27.0-31.0); MEAN PLATELET VOLUME 9.8 fl (9.6-12.3); MONO # 0.3 10*3/uL (0.1-1.0); MONO % 5.1 % (3.0-9.0); NEUT # 3.9 10*3/uL (2.3-7.9); NEUT % 70.9 % (47.0-73.0); NUCLEATED RED BLOOD CELL 0.0 % (0.0-0.0); NUCLEATED RED BLOOD CELL 0.0 10*3/uL (0.0-0.0); PLATELET COUNT AUTOMATED 252 10*3/uL (130-400); RED CELL DISTRI WIDTH 12.3 % (0-14.5)
[2025-08-12 17:01] LABS: BUN 17 mg/dl (9-23); SGPT/ALT 44 U/L (5-49)
[2025-08-12] MEDS ORDERED: Atropine Sulfate/Diphenoxyla 1 TAB TAB PO ONE (18:50)
[2025-08-12] MEDS ORDERED: Ondansetron4 MG PO (19:01)
== END 2025-08-12 19:16 | disposition home or self-care (01) ==
LOC: ED 15:16
PROVIDERS: Emergency Medicine
DX: R19.7 Diarrhea, unspecified (principal); T50.905A Adverse effect of unspecified drugs, medicaments and biological substances, initial encounter; G43.909 Migraine, unspecified, not intractable, without status migrainosus; Z88.2 Allergy status to sulfonamides; Z88.6 Allergy status to analgesic agent; Z88.8 Allergy status to other drugs, medicaments and biological substances; Z98.890 Other specified postprocedural states; Z90.710 Acquired absence of both cervix and uterus; Y92.89 Other specified places as the place of occurrence of the external cause